=== PATIENT | female | born 1995 | race Caucasian/White ===

== ENCOUNTER → 2017-04-20 | Outpatient (CLI) | payer BC, OTHER ==
[~2017-04-20] MED LIST: ALBUAER2 INH; IRON1CAP2; MTR600X PO; PRENTAB26 PO; RANI1TAB75
[2017-04-20 18:41] LABS: URINE APPEARANCE CLEAR (CLEAR); URINE BILIRUBIN NEG (NEG); URINE COLOR YELLOW; URINE NITRITE NEG (NEG); URINE PH 6.5 (4.5-7.5); URINE SPECIFIC GRAVITY 1.021 (1.000-1.030); UROBILINOGEN NEG (NEG)
[2017-04-20 18:58] LABS: MANUAL MICROSCOPIC REQUIRED? NO; REVIEW REQ? NO
== END | disposition home or self-care (01) ==
LOC: C.LABSPEC 17:58
PROVIDERS: ATTEND Obstetrics & Gynecology
DX: Z34.81 Encounter for supervision of other normal pregnancy, first trimester (principal)

== ENCOUNTER → 2017-04-28 | Outpatient (CLI) | payer BC ==
[2017-04-28 17:45] LABS: BASO % 0.2 %; BASO ABS # 0.02 K/uL (0-0.2); COMPLETE YES; EOS % 2.7 %; HEMATOCRIT 38.2 % (37-47); IG% 0.3 %; LYMPH % 22.4 %; LYMPH ABS # 2.32 K/uL (1.2-3.4); MEAN CELL VOLUME 88.2 fL (80-100); MEAN CORPUSCULAR HEMOGLOBIN 29.1 pg (25-34); MEAN PLATELET VOLUME 11.2 fL (7.4-10.4); MONO % 8.3 %; NEUT % 66.1 %; PLATELET COUNT 302 K/uL (130-400); RED BLOOD COUNT 4.33 M/uL (4.2-5.4); WHITE BLOOD COUNT 10.34 K/uL (4.8-10.8)
[2017-05-02 05:51] LABS: CHLAMYDIA TRACH RNA*** NOT DETECTED (NOT DETECTED); GC (NEIS GONORRHOEAE)RNA** NOT DETECTED (NOT DETECTED)
== END | disposition home or self-care (01) ==
LOC: C.LAB1850 15:19
PROVIDERS: ATTEND Obstetrics & Gynecology
DX: Z34.83 Encounter for supervision of other normal pregnancy, third trimester (principal)

== ENCOUNTER → 2017-05-12 | Outpatient (CLI) | payer BC ==
[2017-05-12 11:54] LABS: URINE APPEARANCE TURBID (CLEAR); URINE BILIRUBIN NEG (NEG); URINE COLOR DK YELLOW; URINE EPITHELIAL CELL AUTO >30 /lpf (0-5); URINE NITRITE NEG (NEG); URINE SPECIFIC GRAVITY 1.034 (1.000-1.030); UROBILINOGEN NEG (NEG)
[2017-05-12 11:56] LABS: REVIEW REQ? YES
[2017-05-12 11:57] LABS: MANUAL MICROSCOPIC REQUIRED? NO
== END | disposition home or self-care (01) ==
LOC: C.LABSPEC 11:34
PROVIDERS: ATTEND Obstetrics & Gynecology
DX: R30.0 Dysuria (principal)

== ENCOUNTER → 2017-06-30 | Outpatient (CLI) | payer BC, OTHER ==
[2017-06-30 12:16] LABS: GTGD 50 Grams
== END | disposition home or self-care (01) ==
LOC: C.LAB1850 11:33
PROVIDERS: ATTEND Obstetrics & Gynecology
DX: Z34.83 Encounter for supervision of other normal pregnancy, third trimester (principal)

== ENCOUNTER → 2017-09-22 | Outpatient (CLI) | payer OTHER ==
[2017-09-22 10:03] LABS: HEMATOCRIT 32.5 % (37-47); HEMOGLOBIN 11.1 g/dL (12.0-16.0)
== END | disposition home or self-care (01) ==
LOC: C.LAB1850 09:15
PROVIDERS: ATTEND Obstetrics & Gynecology
DX: Z34.83 Encounter for supervision of other normal pregnancy, third trimester (principal)

== ENCOUNTER 2017-09-26 09:32 | Emergency (ER) | payer OTHER ==
[~2017-09-26] VITALS: Ht 157.5 cm; Wt 62.3 kg
[2017-09-26 09:35] VITALS: TEMP 36.4; Ht 157.5 cm; Wt 62.3 kg
[2017-09-26] MEDS ORDERED: SODIUM CHLORIDE 0.9% 1000ML 1,000 ML IV STA (09:50)
[2017-09-26] MEDS ORDERED: ONDANSETRON INJ 2 MG/ML 2 ML VIAL IV STA (09:50)
[2017-09-26] MEDS ORDERED: ACETAMINOPHEN 500 MG TAB PO STA (09:50)
[2017-09-26] MEDS ORDERED: VNTHFA/IN INH (10:21)
--- NOTE | 2017-09-26 10:33 | EMERGENCY ROOM VISIT NOTE ---
History Report prepared by Pallaviibrichie: Johnny Rodriguez Under the Supervision of: Dr. Estee Zuñiga M.D. First contact with patient: 09:40 Chief Complaint: VOMITING Stated Complaint: FLU, DIARRHEA,CRAMPS, CANT KEEP FLUID DOWN Nursing Triage Summary: pt awoke during night with vomiting and then diarrhea started pt can hold no fluids down and c/o cramping sensation some vaginal d/c which is normal for pt pt is 29 weeks preg History of Present Illness The patient is a 22 year old white female with a past medical history of asthma who presents to the ED with a cc of persistent vomiting beginning yesterday. Patient is 29 weeks . She has had confirmed by US. Unable to keep down fluids. Vomiting every two hours. Positive abdominal cramping, and diarrhea. Not urinating much recently. Currently using vitamins. No recent antibiotic use. No use of well or stream water. Notes that her son has been had similar symptoms. . Source of History: patient Onset: Yesterday Symptom Intensity: every two hours Quality: other (vomiting) Timing: other (persistent) Associated Symptoms: + abdominal pain, + diarrhea Review of Systems See HPI for pertinent positives and negatives. A total of ten systems were reviewed and were otherwise negative. Past Medical & Surgical Medical Problems: (1) Asthma, Unspecified Family History No pertinent family history stated. Social History Smoking Status: Never Smoker Housing Status: lives with family Current/Historical Medications Scheduled Multivit/Min/Iron/Fol Ac/Pren ( Vitamin), 1 TAB PO DAILY Scheduled PRN Albuterol Hfa (Ventolin Hfa), 2 PUFFS INH QID PRN for SOB/Wheezing Ondansetron Hcl (Zofran), 4 MG PO Q8H PRN for Nausea Miscellaneous Medications Iron Combinations (Iron Complex) Allergies Coded Allergies: Red Dye (Verified Allergy, Mild, RASH, 04/29/16) Sucralfate (Verified Allergy, Mild, RASH, 04/29/16) Physical Exam Vital Signs Date Time Temp Pulse Resp B/P (MAP) Pulse Ox O2 Delivery O2 Flow Rate FiO2 09/26/17 11:34 93 18 88/56 99 Room Air 09/26/17 11:01 92 18 95/55 93 Room Air 09/26/17 10:16 96 09/26/17 09:35 36.4 107 20 97/61 96 Room Air Physical Exam GENERAL: Awake, alert, well-appearing, NAD. Wearing face-mask. HENT: Normocephalic, atraumatic. EYES: Normal conjunctiva. Sclera non-icteric. NECK: Supple. No nuchal rigidity. FROM. RESPIRATORY: CTAB, no rhonchi, wheezing, crackles CARDIAC: RRR, no MRG ABDOMEN: NTND, BS+. Fundal height 10 cm above umbilicus. Non-surgical abdomen. MSK: No chest wall TTP, no LE edema NEURO: GCS 15, CN 2-12 intact, moves all 4s on command SKIN: No rash or jaundice noted. Medical Decision & Procedures Laboratory Results 09/26/17 10:14 Red Blood Count 3.59, Mean Corpuscular Volume 91.9, Mean Corpuscular Hemoglobin 30.9, Mean Corpuscular Hemoglobin Concent 33.6, Mean Platelet Volume 10.6, Neutrophils (%) (Auto) 87.9, Lymphocytes (%) (Auto) 5.7, Monocytes (%) (Auto) 5.1, Eosinophils (%) (Auto) 0.3, Basophils (%) (Auto) 0.1, Neutrophils # (Auto) 12.59, Lymphocytes # (Auto) 0.82, Monocytes # (Auto) 0.73, Eosinophils # (Auto) 0.05, Basophils # (Auto) 0.01 09/26/17 10:14 Test 09/26/17 10:14 09/26/17 11:00 09/26/17 11:15 White Blood Count 14.33 K/uL (4.8-10.8) Red Blood Count 3.59 M/uL (4.2-5.4) Hemoglobin 11.1 g/dL (12.0-16.0) Hematocrit 33.0 % (37-47) Mean Corpuscular Volume 91.9 fL (80-100) Mean Corpuscular Hemoglobin 30.9 pg (25-34) Mean Corpuscular Hemoglobin Concent 33.6 g/dl (32-36) Platelet Count 222 K/uL (130-400) Mean Platelet Volume 10.6 fL (7.4-10.4) Neutrophils (%) (Auto) 87.9 % Lymphocytes (%) (Auto) 5.7 % Monocytes (%) (Auto) 5.1 % Eosinophils (%) (Auto) 0.3 % Basophils (%) (Auto) 0.1 % Neutrophils # (Auto) 12.59 K/uL (1.4-6.5) Lymphocytes # (Auto) 0.82 K/uL (1.2-3.4) Monocytes # (Auto) 0.73 K/uL (0.11-0.59) Eosinophils # (Auto) 0.05 K/uL (0-0.5) Basophils # (Auto) 0.01 K/uL (0-0.2) RDW Standard Deviation 48.8 fL (36.4-46.3) RDW Coefficient of Variation 14.4 % (11.5-14.5) Immature Granulocyte % (Auto) 0.9 % Immature Granulocyte # (Auto) 0.13 K/uL (0.00-0.02) Anion Gap 9.0 mmol/L (3-11) Est Creatinine Clear Calc Drug Dose 176.6 ml/min Estimated GFR () > 150.0 Estimated GFR (Non- 143.4 BUN/Creatinine Ratio 21.3 (10-20) Calcium Level 8.6 mg/dl (8.5-10.1) Total Bilirubin 0.3 mg/dl (0.2-1) Direct Bilirubin < 0.1 mg/dl (0-0.2) Aspartate Amino Transf (AST/SGOT) 11 U/L (15-37) Alanine Aminotransferase (ALT/SGPT) 14 U/L (12-78) Alkaline Phosphatase 79 U/L (45-117) Total Protein 6.3 gm/dl (6.4-8.2) Albumin 2.6 gm/dl (3.4-5.0) Lipase 125 U/L (73-393) Human Chorionic Gonadotropin, Qual POS (NEG) Influenza Type A Antigen Neg for Influ A (NEG) Influenza Type B Antigen Neg for Influ B (NEG) Urine Color YELLOW Urine Appearance CLEAR (CLEAR) Urine pH 7.0 (4.5-7.5) Urine Specific [place] 1.015 (1.000-1.030) Urine Protein NEG (NEG) Urine Glucose (UA) NEG (NEG) Urine Ketones TRACE (NEG) Urine Occult Blood NEG (NEG) Urine Nitrite NEG (NEG) Urine Bilirubin NEG (NEG) Urine Urobilinogen NEG (NEG) Urine Leukocyte Esterase TRACE (NEG) Urine WBC (Auto) 1-5 /hpf (0-5) Urine RBC (Auto) 0-4 /hpf (0-4) Urine Hyaline Casts (Auto) 1-5 /lpf (0-5) Urine Epithelial Cells (Auto) >30 /lpf (0-5) Urine Bacteria (Auto) NEG (NEG) Laboratory results reviewed by me Medications Administered Medications (Trade) Dose Ordered Sig/Rodney Route Start Time Stop Time Status Last Admin Dose Admin Sodium Chloride 1,000 ml @ 999 mls/hr Q1H1M STAT IV 09/26/17 09:50 09/26/17 10:50 DC 09/26/17 09:50 999 MLS/HR Ondansetron HCl (Zofran Inj) 4 mg NOW STAT IV 09/26/17 09:50 09/26/17 09:52 DC 09/26/17 10:08 4 MG Acetaminophen (Tylenol Tab) 1,000 mg NOW STAT PO 09/26/17 09:50 09/26/17 09:52 DC 09/26/17 10:09 1,000 MG ED Course 0945: The patient was evaluated in room B12B. A complete history and physical exam was performed. 1025: Bedside ultrasound shows single IUP. heart rate of 158. 1155: I reevaluated the patient. Discussed results and discharge instructions: she verbalized understanding and agreement. The patient is ready for discharge. Medical Decision The patient is a 22 year old white female with a past medical history of asthma who presents to the ED with a cc of vomiting beginning yesterday. Differential diagnosis: Etiologies such as gastroenteritis, food borne illness, infections, appendicitis , diverticulitis, inflammatory bowel disease, obstruction, GI bleed, biliary pathology, as well as others were entertained. Patient was seen and evaluated the bedside. Patient did complain of some left- sided pleuritic-type chest pain. Patient does state that she flies a fair amount. Patient does use OCPs but denies smoking. Patient doesn't have any calf pain has no lower extremity swelling. No prior history of DVT or PE. Patient did not take anything for pain and patient does state the pain is nondiscriminatory on exertion. Patient does state is worse with breathing or laughing. Patient denies any recent trauma and denies any infectious symptoms. Patient did have an EKG, troponin, blood work, and d-dimer performed. Patient was also given medications for symptom control. Patient's blood work was completed. Patient had white blood cell count of 14, 000. Patient stated that her pain improved about a 1 or 2. Patient was able tolerate crackers and by mouth fluids at the bedside. I believe this is likely reactive from gastroenteritis. Patient does not have a surgical abdomen. I did perform a bedside ultrasound which did show heart tones 158. Patient denied any urinary symptoms and the UA appears negative from an infection standpoint. Patient's BUN/creatinine ratio likely indicative of dehydration. She did receive IV fluids as well as medications and was feeling improved. Patient was told to call her BIOINFORMATICS ANALYST for an earlier follow-up if she does have an appointment in 2 weeks. Patient was told to advance her diet as tolerated, clear liquids, bland diet. Patient was told return if she had any worsening symptoms or was unable to tolerate by mouth. Patient was given strict follow-up , discharge, and return precautions. All questions were answered. Patient was deemed suitable for outpatient follow-up at this time. Patient agreed with the plan of care and was safely discharged home. The chart was completed utilizing [employer] Speech voice recognition software. Grammatical errors, random word insertions, pronoun errors, and incomplete sentences are an occasional consequence of this system due to software limitations, ambient noise, and hardware issues. Any formal questions or concerns about the content, text, or information contained within the body of this dictation should be directly addressed to the physician for clarification. Medication Reconcilliation Current Medication List: was personally reviewed by me Blood Pressure Screening Patient's blood pressure: Low blood pressure Blood pressure disposition: Did not require urgent referral Impression Primary Impression: Viral gastroenteritis Scribe Attestation The scribe's documentation has been prepared under my direction and personally reviewed by me in its entirety. I confirm that the note above accurately reflects all work, treatment, procedures, and medical decision making performed by me. Departure Information Dispostion Home / Self-Care Prescriptions Ondansetron Hcl (ZOFRAN) 4 Mg Tab 4 MG PO Q8H Y for Nausea, #6 TAB Prov: Neftaly Grajeda M.D. 09/26/17 Referrals Chrissie Torres C.R.N.P. (PCP) Patient Instructions ED Nausea Vomiting, My [facility] Additional Instructions Please return to the emergency department if you have worsening or recurrent symptoms not amenable to at-home treatment. Please call for a follow-up appointment with her primary care physician. Please take your medications as prescribed. If you have other concerns and/or complaints please feel free to also call your primary care physician's office or return the ED for further evaluation, management, and treatment. For nausea consider taking Benadryl and or meclizine which may be obtained over- the-counter at her local pharmacy. If he still have complaints of nausea and/ or vomiting he may try the Zofran. Please follow-up with your BIOINFORMATICS ANALYST specialist. You may take tylenol 1000 mg every 6 hours as needed for pain. Take your medications as prescribed. You have been examined and treated today on an emergency basis only. This is not a substitute for, or an effort to provide, complete comprehensive medical care. It is impossible to recognize and treat all injuries or illnesses in a single emergency department visit. It is therefore important that you follow up closely with [facility], your PCP, and/or your specialist(s). Call as soon as possible for an appointment. Thank you for your time and consideration. I look forward to speaking with you again soon. Please don't hesitate to call us if you have any questions.
[2017-09-26 10:38] LABS: BASO % 0.1 %; BASO ABS # 0.01 K/uL (0-0.2); EOS % 0.3 %; EOS ABS # 0.05 K/uL (0-0.5); HEMOGLOBIN 11.1 g/dL (12.0-16.0); IG# 0.13 K/uL (0.00-0.02); LYMPH % 5.7 %; LYMPH ABS # 0.82 K/uL (1.2-3.4); MEAN CELL VOLUME 91.9 fL (80-100); MEAN CORPUSCULAR HEMOGLOBIN 30.9 pg (25-34); MEAN CORPUSCULAR HGB CONC 33.6 g/dl (32-36); MEAN PLATELET VOLUME 10.6 fL (7.4-10.4); MONO % 5.1 %; MONO ABS # 0.73 K/uL (0.11-0.59); NEUT % 87.9 %; NEUT ABS # 12.59 K/uL (1.4-6.5); PLATELET COUNT 222 K/uL (130-400); RED CELL DISTRIBUTION WIDTH CV 14.4 % (11.5-14.5); RED CELL DISTRIBUTION WIDTH SD 48.8 fL (36.4-46.3); WHITE BLOOD COUNT 14.33 K/uL (4.8-10.8)
[2017-09-26 10:56] LABS: ALBUMIN 2.6 gm/dl (3.4-5.0); ALT/SGPT 14 U/L (12-78); AST/SGOT 11 U/L (15-37); BLOOD UREA NITROGEN 9 mg/dl (7-18); CALCIUM 8.6 mg/dl (8.5-10.1); CARBON DIOXIDE 22 mmol/L (21-32); CREATININE 0.43 mg/dl (0.60-1.20); GLUCOSE 84 mg/dl (70-99); LIPASE 125 U/L (73-393); POTASSIUM 3.4 mmol/L (3.5-5.1); SODIUM 135 mmol/L (136-145)
[2017-09-26 10:58] LABS: ALKALINE PHOSPHATASE 79 U/L (45-117); TOTAL PROTEIN 6.3 gm/dl (6.4-8.2)
[2017-09-26 11:38] LABS: INFLUENZA B ANTIGEN Neg for Influ B (NEG)
[2017-09-26] MEDS ORDERED: ONDA4TAB46 PO (12:02)
[2017-09-26 12:16] VITALS: BP 90/50; PULSE 95; O2SAT 96
== END 2017-09-26 12:16 | disposition home or self-care (01) ==
LOC: C.EDB 09:34
DX: A08.4 Viral intestinal infection, unspecified (principal); O26.893 Other specified pregnancy related conditions, third trimester; Z3A.29 29 weeks gestation of pregnancy; J45.909 Unspecified asthma, uncomplicated; O99.513 Diseases of the respiratory system complicating pregnancy, third trimester

== ENCOUNTER 2017-10-12 20:28 | Outpatient (CLI) | payer OTHER ==
[~2017-10-12] VITALS: Ht 157.5 cm; Wt 62.7 kg
[~2017-10-12 20:28] MED LIST changes: -ALBUAER2 INH; -MTR600X PO; +ONDA4TAB46 PO; -RANI1TAB75; +VNTHFA/IN INH
[2017-10-12 21:40] VITALS: Ht 157.5 cm; Wt 62.7 kg
== END 2017-10-12 21:30 | disposition home or self-care (01) ==
LOC: C.OPB 20:28 → C.LD 20:30 → C.OPB 21:30
PROVIDERS: ATTEND Obstetrics & Gynecology
DX: O26.899 Other specified pregnancy related conditions, unspecified trimester (principal); Z3A.00 Weeks of gestation of pregnancy not specified

== ENCOUNTER → 2017-11-21 | Outpatient (CLI) | payer OTHER ==
[~2017-11-21] MED LIST changes: -ONDA4TAB46 PO
== END | disposition home or self-care (01) ==
LOC: C.LABSPEC 16:10
PROVIDERS: ATTEND Obstetrics & Gynecology
DX: Z34.83 Encounter for supervision of other normal pregnancy, third trimester (principal)

== ENCOUNTER 2017-11-30 22:03 | Observation (INO) | payer OTHER ==
[2017-11-30] MEDS ORDERED: LACTATED RINGER'S 1000ML 1,000 ML IV PRN (22:39)
[2017-11-30] MEDS ORDERED: LACTATED RINGER'S 1000ML 1,000 ML IV SCH (22:39)
[2017-11-30 23:07] LABS: HEMATOCRIT 32.9 % (37-47); HEMOGLOBIN 10.9 g/dL (12.0-16.0); MEAN CELL VOLUME 90.6 fL (80-100); MEAN CORPUSCULAR HGB CONC 33.1 g/dl (32-36); MEAN PLATELET VOLUME 10.7 fL (7.4-10.4); PLATELET COUNT 196 K/uL (130-400); RED CELL DISTRIBUTION WIDTH CV 15.1 % (11.5-14.5); RED CELL DISTRIBUTION WIDTH SD 49.7 fL (36.4-46.3); WHITE BLOOD COUNT 12.66 K/uL (4.8-10.8)
[2017-12-01] MEDS ORDERED: IV FLUIDS COMPLETED PRN (08:15)
== END 2017-12-01 07:35 | disposition home or self-care (01) ==
LOC: C.LD 22:03 → C.OPB 22:03 → C.LD 22:40 → C.OPB 22:40 → INTOOBSV 22:40
PROVIDERS: ADMIT Obstetrics & Gynecology; ATTEND Obstetrics & Gynecology
DX: O62.9 Abnormality of forces of labor, unspecified (principal); Z3A.00 Weeks of gestation of pregnancy not specified

== ENCOUNTER 2017-12-08 07:39 | Inpatient (IN) | payer OTHER ==
[~2017-12-08] VITALS: Ht 157.5 cm; Wt 67.0 kg
[2017-12-08] MEDS ORDERED: LACTATED RINGER'S 1000ML 1,000 ML IV PRN (07:50)
[2017-12-08] MEDS ORDERED: LACTATED RINGER'S 1000ML 500 ML IV PRN ×2 (07:52→09:52)
[2017-12-08] MEDS ORDERED: OXYTOCIN 30 UNITS/500ML NSS IV PRN ×2 (08:00→11:45)
[2017-12-08 08:24] LABS: HEMATOCRIT 33.7 % (37-47); HEMOGLOBIN 10.6 g/dL (12.0-16.0); MEAN CELL VOLUME 90.8 fL (80-100); MEAN CORPUSCULAR HEMOGLOBIN 28.6 pg (25-34); MEAN CORPUSCULAR HGB CONC 31.5 g/dl (32-36); MEAN PLATELET VOLUME 10.9 fL (7.4-10.4); PLATELET COUNT 182 K/uL (130-400); RED CELL DISTRIBUTION WIDTH CV 15.2 % (11.5-14.5); RED CELL DISTRIBUTION WIDTH SD 49.6 fL (36.4-46.3); WHITE BLOOD COUNT 13.01 K/uL (4.8-10.8)
[2017-12-08] MEDS ORDERED: BUPIVACAINE 0.25% 30 ML VIAL ONE (08:49)
[2017-12-08] MEDS ORDERED: EpHEDrine SULFATE INJ 50 MG/ML AMP ONE (08:50)
[2017-12-08] MEDS ORDERED: FENTANYL CITRATE INJ 50 MCG/1 ML 2 ML VIAL ONE (08:50)
[2017-12-08] MEDS ORDERED: FENTANYL 2MCG/ML ROPIV 1.25MG/ML 100ML BAG EPI ONE (08:52)
[2017-12-08] MEDS ORDERED: LACTATED RINGER'S 1000ML 1,000 ML IV SCH ×2 (09:00→11:43)
[2017-12-08] MEDS ORDERED: RANITIDINE HCL 150 MG TAB PO ONE (09:00)
[2017-12-08 09:04] VITALS: Ht 157.5 cm; Wt 67.0 kg
[2017-12-08] MEDS ORDERED: NALOXONE HCL INJ 1 MG in SODIUM CHLORIDE 0.9% 1000ML 1,000 ML IV PRN (09:52)
[2017-12-08] MEDS ORDERED: DiphenhydrAMINE HCL 50 MG/ML VIAL IV PRN (10:00)
[2017-12-08] MEDS ORDERED: NALBUPHINE HCL INJ 10 MG/ML AMP IV PRN (10:00)
[2017-12-08] MEDS ORDERED: EpHEDrine SULFATE INJ 50 MG/ML AMP IV PRN (10:00)
[2017-12-08] MEDS ORDERED: FENTANYL 2MCG/ML ROPIV 1.25MG/ML 100ML BAG EPI PRN (10:00)
[2017-12-08] MEDS ORDERED: ONDANSETRON INJ 2 MG/ML 2 ML VIAL IV PRN (10:00)
[2017-12-08] MEDS ORDERED: NALOXONE HCL INJ 0.4 MG/1 ML VIAL/CARP IV PRN (10:00)
[2017-12-08] MEDS ORDERED: DIPHTHERIA/TETANUS/PERTUSSIS 0.5 ML SYR/VIAL IM. ONE (11:45)
[2017-12-08] MEDS ORDERED: SUPERCREAM 0.870 % 15GM JAR EXT PRN (11:45)
[2017-12-08] MEDS ORDERED: HYDROCORTISONE ACETATE 25 MG SUPP PR PRN (11:45)
[2017-12-08] MEDS ORDERED: ACETAMINOPHEN 325 MG TAB PO PRN (11:45)
[2017-12-08] MEDS ORDERED: OXYCODONE/ACETAMINOPHEN 5-325 TAB PO PRN (11:45)
[2017-12-08] MEDS ORDERED: BENZOCAINE 20% AER SPR 82.5 GM CAN EXT PRN (11:45)
[2017-12-08] MEDS ORDERED: LANOLIN OINT EXT PRN (11:45)
--- NOTE | 2017-12-08 11:45 | Vaginal Delivery Summary ---
Vaginal Delivery Summary Patient pushed well to deliver the head of her female infant in occiput- anterior position, followed by both shoulders and remainder of baby without difficulty. The cord was doubly clamped and cut by FOB, then placed on maternal abdomen. The perineum had a second-degree laceration which was repaired in the usual manner with vicryl. The placenta then delivered spontaneously and had a 3vc and was intact. The fundus was firm and lochia was minimal after delivery.
--- NOTE | 2017-12-08 13:38 | Anesthesia Procedure Note ---
Anesthesia Epidural Removal Nt Date & Time Dec 08, 2017 at 13:38 Vital Signs Pain Intensity: 0.0 Notes Mental Status: alert / awake / arousable, participated in evaluation Nausea / Vomiting: adequately controlled Pain: adequately controlled Airway Patency, RR, SpO2: stable & adequate BP & HR: stable & adequate Hydration State: stable & adequate Neuraxial Anesthesia: was administered, sensory block is resolving Anesthetic Complications: no major complications apparent, pt satisfied with anesthetic care Epidural: removed without complications, with tip intact
[2017-12-08 15:10] VITALS: BP 109/67; PULSE 77; TEMP 36.7; O2SAT 98
[2017-12-08] MEDS: IBUPROFEN 600 MG TAB PO PRN ×2 (19:47→23:53)
[2017-12-08] MEDS: DOCUSATE SODIUM 100 MG CAP PO SCH (19:47)
[2017-12-08 19:49] VITALS: BP 100/62; PULSE 70; TEMP 36.6; O2SAT 96
[2017-12-08 23:50] VITALS: BP 101/62; PULSE 58; TEMP 36.4; O2SAT 96
[2017-12-09 03:35] VITALS: BP 95/58; PULSE 69; TEMP 36.6; O2SAT 96
--- NOTE | 2017-12-09 06:35 | Progress Note ---
Subjective Dec 09, 2017. Subjective conversation w/ patient, physical exam Ambulation: ambulating normally Voiding: no voiding problems Passing Gas: Yes Diet Tolerance: Regular Diet Lochia: Moderate Feeding Type: Breast Feeding Pain: cramping while Comment: seen and assessed at bedside; no acute events overnight Review of Systems Constitutional: No fever, No chills Respiratory: No cough, No shortness of breath Cardiac: No chest pain, No edema Abdomen: No nausea, No vomiting no headaches or calf pain Objective Vital Signs Date Time Temp Pulse Resp B/P (MAP) Pulse Ox O2 Delivery O2 Flow Rate FiO2 12/09/17 03:35 36.6 69 20 95/58 (70) 96 Room Air 12/08/17 23:50 36.4 58 20 101/62 (75) 96 Room Air 12/08/17 23:50 96 Room Air 12/08/17 19:49 36.6 70 20 100/62 (75) 96 Room Air 12/08/17 15:10 36.7 77 18 109/67 (81) 98 Room Air 12/08/17 15:10 98 Room Air Physical Exam General Appearance: WELL-APPEARING, NO APPARENT DISTRESS Respiratory/Chest: lungs clear, normal breath sounds Cardiovascular: regular rate, rhythm, no edema, no murmur Abdomen: non tender, soft Fundus: Firm, Non-Tender, Relation to Umbilicus (2-3 below) Extremities: normal range of motion, non-tender, normal inspection, no pedal edema, no calf tenderness Laboratory Results Last 24 Hours Test 12/08/17 08:02 12/09/17 04:44 White Blood Count 13.01 K/uL Red Blood Count 3.71 M/uL Hemoglobin 10.6 g/dL Hematocrit 33.7 % Mean Corpuscular Volume 90.8 fL Mean Corpuscular Hemoglobin 28.6 pg Mean Corpuscular Hemoglobin Concent 31.5 g/dl RDW Standard Deviation 49.6 fL RDW Coefficient of Variation 15.2 % Platelet Count 182 K/uL Mean Platelet Volume 10.9 fL Medications Current Inpatient Medications Medications (Trade) Dose Ordered Sig/Rodney Route Start Time Stop Time Status Last Admin Dose Admin Lactated Ringer's 1,000 ml @ 125 mls/hr Q8H IV 12/08/17 11:43 01/07/18 11:42 Oxytocin (Pitocin IV) 30 units UD PRN IV 12/08/17 11:45 01/07/18 11:44 Benzocaine (Dermoplast Aero Spr) 1 appln PRN PRN EXT 12/08/17 11:45 01/07/18 11:44 Cocaine HCl (Supercream 0.870% Cr) BID PRN EXT 12/08/17 11:45 12/22/17 11:44 Hydrocortisone Acetate (Anusol Hc Supp) 25 mg BID PRN GA 12/08/17 11:45 01/07/18 11:44 Lanolin (Lanolin Oint) PRN PRN EXT 12/08/17 11:45 01/07/18 11:44 Prenat Multivit/ Property Worker/Iron/Folic Ac ( Vitamin Tab) 1 tab DAILY PO 12/09/17 08:00 01/08/18 07:59 Ibuprofen (Motrin Tab) 600 mg Q4H PRN PO 12/08/17 11:45 01/07/18 11:44 12/08/17 23:53 600 MG Acetaminophen (Tylenol Tab) 650 mg Q6H PRN PO 12/08/17 11:45 01/07/18 11:44 Oxycodone/ Acetaminophen (Percocet 5-325mg Tab) 1 tab Q4H PRN PO 12/08/17 11:45 12/22/17 11:44 Docusate Sodium (coLACE CAP) 100 mg BID PO 12/08/17 20:00 01/07/18 19:59 12/08/17 19:47 100 MG Assessment and Plan Problem List Medical Problems: (1) Viral gastroenteritis Status: Acute Post- Day#: 1 Continue Routine Care: 22 yo F PPD 1 s/p Pt doing well clinically Continue routine care: ambulation, breast feeding, pain control prn Home today; discharge instructions reviewed Will need rhogam prior to DC Resident Tracking Resident Involvement: Resident Care Provided Care Provided: OB Delivery
--- NOTE | 2017-12-09 06:36 | Discharge Instructions ---
Discharge Instructions Date of Service Dec 09, 2017. Admission Reason for Admission: Hx 4TH Degree Perineal Laceration W/Delivery-Induc Discharge Discharge Diagnosis / Problem: s/p Discharge Goals Goal(s): Routine recovery after delivery Medications Continue Dispensed Medications: supercream, dermaplast, tucks, lansinoh Activity Recommendations Activity Limitations: per Instructions/Follow-up section . Instructions / Follow-Up Instructions / Follow-Up ACTIVITY RECOMMENDATIONS: * Gradual return to full activity over the next 2-3 weeks. * No lifting - nothing heavier than baby over the next 2-3 weeks. * Do not engage in vigorous exercise, sexual activity or sports until cleared by your physician. * Do not drive or operate any motorized equipment until cleared by your physician. * You may shower/bathe daily. MEDICATIONS: For discomfort or pain, you may use Acetaminophen (Tylenol), Ibuprofen (Advil), or Naproxen (Aleve) following the package directions. For constipation you may use Colace following the package directions. BREAST CARE: If you are not breast feeding: * Wear a supportive bra 24 hours a day for one to two weeks. * Avoid stimulating your breasts and nipples as much as possible during the first few weeks after delivery. * When taking a shower, have the warm water hit your back, not breasts. * When your breasts feel full, apply ice packs. Usually three to four times a day helps ease the discomfort. * Take a mild pain medication (Tylenol / Motrin) when you are uncomfortable. If breast feeding: * Use breast milk to lubricate nipples. Lansinoh cream may be used for sore nipples. You do not need to remove cream prior to breast feeding. If using a different brand of cream, check the label for directions regarding removal of cream prior to nursing. * Wear a supportive bra. * If having problems with breasts or breast feeding, call a travel sales consultant or your health care provider. EPISIOTOMY CARE: After delivery, if you have an episiotomy (stitches), the following steps will ease discomfort and aid healing. * For the first 24 hours after delivery, place ice packs next to your episiotomy to help reduce swelling. * After the first 24 hour-period, sitz baths, either portable or in the tub, are suggested. A shower with a shower arm sprayed over the episiotomy may be comforting. * Raisa care should be done after each voiding and bowel movement. Squirt warm water from a plastic bottle over the perineum (region of the body between the anus and urinary opening) and pat dry. * Use Dermoplast to ease discomfort. Shake container. [place] directly over the episiotomy. Place a Tucks on a clean sanitary pad next to your episiotomy. SPECIAL CARE INSTRUCTIONS: When you are discharged from the hospital, it is important for you to follow the instructions listed below: * During the first week at home, you should be able to care for yourself and your baby. In addition, the usual light household activities are encouraged. * Limit your activities to the way you feel. Do not try to clean the house or move furniture. Be sensible. * If you actively engage in sports and have done so up until the time of your delivery, you may resume these activities as soon as you feel able. This may take up to one month or even longer. Use good judgment. * Continue to take your vitamins for at least six weeks after the of your baby. * Your diet need not be limited unless you were on a special diet before your delivery. Breast-feeding mothers need around 2500 calories per day and at least 64-80 ounces of fluid per day (8 to 10 glasses). * You should eat foods from the four major food groups. Crash diets or fad diets are to be avoided. Eating lean meats, fresh fruits and vegetables, low-fat dairy products, high fiber foods and a regular exercise program, will help you get back to your pre- weight without putting your health at risk. * Constipation is sometimes a problem after delivery. Take a mild laxative as needed. If breast feeding, Milk of Magnesia is acceptable to use. You may use a suppository or Fleets enema if no episiotomy. * A daily shower or tub bath is suggested. Be sure to thoroughly and gently dry the perineum. * A bloody vaginal discharge will usually continue until around four weeks post . A small amount of bleeding may continue for as long as six weeks. Vaginal discharge changes from the bright red bleeding after delivery to pink then brownish and finally yellowish-pink before becoming white and disappearing. * Bleeding may increase with activity. Your first period may come in 4-8 weeks. If you are breast feeding, your period may be delayed even longer. * [place] (sex) can begin whenever both you and your partner feel comfortable and do not have any form of genital infection. It is recommended that you wait at least six weeks for internal and external healing to occur. If you have questions, please talk to your health care practitioner. A condom should be used to prevent infection and . * Foreplay, gentle intercourse and lubrication is very important the first several times to prevent pain. A water-based lubricant such as K-Y jelly or Astroglide may be used. * If you have RH negative blood and your baby is RH positive, you will receive RHOGAM by injection prior to discharge. The nurse will give you a card to keep with you that has the date and place that you received RHOGAM after delivery. * During your care, you had a Rubella screen done to check for the presence of rubella antibodies in your blood. If your test was negative, you will receive a Rubella vaccine prior to discharge. This vaccine may cause a fever, soreness at the injection site and flu-like symptoms. If these symptoms persist, notify your health care practitioner. is not advised for one month after a Rubella vaccine. * Verbalizes understanding of car seat law as reviewed with patient nursing. * Car Seat hand-out given and reviewed with patient by nursing. * Shaken baby information reviewed with patient by nursing. Call you doctor if: * Heavy bleeding (saturating several pads an hour) or passing clots the size of your fist. * A fever >101 degrees F (38.3 degrees C) on two occasions four hours apart and /or chills. * Unusual pain in the pelvic or vaginal areas. * "Baby Blues" lasting longer than two weeks. If you have any questions or concerns, call your health care practitioner at . FOLLOW UP VISIT: * Please call the office at to schedule a 6 week examination. It is important you keep this appointment. It is important for you to make arrangements for either yearly or twice yearly check-ups thereafter. Current Hospital Diet Patient's current hospital diet: Regular OB Diet Discharge Diet Recommended Diet: Regular OB Diet Pending Studies Studies pending at discharge: no Medical Emergencies . Who to Call and When: Medical Emergencies: If at any time you feel your situation is an emergency, please call 911 immediately. . Non-Emergent Contact Non-Emergency issues call your: [employer] . . "Provider Documentation" section prepared by Marci Salamanca. .
[2017-12-09 08:00] VITALS: BP 106/69; PULSE 85; TEMP 36.7; O2SAT 97
[2017-12-09] MEDS ORDERED: PRENATAL VITAMIN TAB PO SCH (08:00)
[2017-12-09 08:06] LABS: HEMATOCRIT 36.1 % (37-47); HEMOGLOBIN 11.9 g/dL (12.0-16.0)
[2017-12-09] MEDS: DOCUSATE SODIUM 100 MG CAP PO SCH (08:34)
[2017-12-09] MEDS: IBUPROFEN 600 MG TAB PO PRN (08:35)
[2017-12-09 14:58] VITALS: BP_DIAS 69; PULSE 85; TEMP 36.7
== END 2017-12-09 15:00 | disposition home or self-care (01) | DRG 775 ==
LOC: C.LD 07:39 → C.OBG 14:33 → EDSTATUS 12-09 09:00
PROVIDERS: ADMIT Obstetrics & Gynecology; ATTEND Obstetrics & Gynecology
PROC: 0KQM0ZZ Repair Perineum Muscle, Open Approach (ICD-10-PCS; principal; 2017-12-08)
PROC: 10E0XZZ Delivery of Products of Conception, External Approach (ICD-10-PCS; principal; 2017-12-08)
DX: O70.1 Second degree perineal laceration during delivery (principal); Z37.0 Single live birth; Z3A.39 39 weeks gestation of pregnancy

== ENCOUNTER → 2018-01-31 | Outpatient (CLI) | payer OTHER | END | disposition home or self-care (01) | LOC: C.PATHSPEC 11:07 | PROVIDERS: ATTEND Plastic Surgery | DX: D22.5 Melanocytic nevi of trunk (principal) ==

== ENCOUNTER → 2018-04-15 | Outpatient (CLI) | payer OTHER ==
[~2018-04-15] MED LIST changes: +ESCI1TAB6 PO; -IRON1CAP2
== END | disposition home or self-care (01) ==
LOC: C.LABSPEC 10:56
PROVIDERS: ATTEND Nurse Practitioner Family
DX: R39.9 Unspecified symptoms and signs involving the genitourinary system (principal)

== ENCOUNTER 2024-02-01 07:41 | Inpatient (IN) ==
[2024-02-01] MEDS ORDERED: LIDOCAINE 1% LOCAL 20 ML VIAL INFIL PRN (08:34)
[2024-02-01] MEDS ORDERED: OXYTOCIN 30 UNITS/NSS 30 UNITS/500 ML BAG IV PRN ×2 (08:34→17:58)
[2024-02-01 09:16] LABS: Hematocrit (blood only) 29.1 % (37.0-47.0); Hemoglobin 9.7 g/dl (12.0-16.0); Mean Corpuscular Hemoglobin 30.2 pg (25.0-34.0); Mean Corpuscular Hgb Conc 33.3 g/dL (32.0-36.0); Mean Corpuscular Volume 90.7 fL (80.0-100.0); Mean Platelet Volume 11.3 fL (9.4-12.4); Platelet Count 233 K/uL (130-400); RDW Coefficient of Variation 14.6 % (11.5-14.5); RDW Standard Deviation 48.5 fL (36.4-46.3); Red Blood Count 3.21 M/uL (4.20-5.40)
[2024-02-01] MEDS: LACTATED RINGER'S 1,000 ML IV PRN (09:27)
[2024-02-01] MEDS: OXYTOCIN 30 UNITS/NSS 30 UNITS/500 ML BAG IV PRN (09:28)
--- NOTE | 2024-02-01 10:16 | History & Physical Report ---
Date of Service February 01, 2024 Assessment & Plan (1) Gestational diabetes mellitus (GDM) affecting , antepartum: Plan: IUP at 39 1/7 weeks for IOL because of prior 4th degree laceration repair cervix too posterior to AROM at this time, will start pitocin per induction protocol then AROM when feasible to do so epidural analgesia if patient requests anticipate vaginal Admission and Anticipated Discharge Date Admission Date: February 01, 2024 History of Present Illness Primary Care Provider: Blaze Fernandez DO Patient is a female EDC [birth year] who presents at 39 1/7 weeks for IOL because of prior 4th degree laceration with her first delivery. subsequent deliveries have been uneventful. diagosed with diet controlled GDM this . all testing has been reassuring. GBS - negative. Allergies Allergy/AdvReac Type Severity Reaction Status Date / Time cat dander Allergy Intermediate HIVES Verified 01/31/24 10:42 dog dander Allergy Intermediate HIVES Verified 01/31/24 10:42 grass pollen-perennial rye, Allergy Intermediate HIVES Verified 01/31/24 10:42 standar mold Allergy Intermediate dificulty Verified 01/31/24 10:42 breathing house dust mite Allergy Mild red eyes, Verified 01/31/24 10:42 sneezing ragweed pollen Allergy Mild sneezing, Verified 01/31/24 10:42 itchy eyes red dye Allergy Mild RASH Verified 01/31/24 10:42 sucralfate Allergy Mild RASH Verified 01/31/24 10:42 tree and shrub pollen Allergy Mild Sneezing Verified 01/31/24 10:42 Home Medications Medication Instructions Recorded Confirmed Type epinephrine 0.3 mg/0.3 mL 0.3 mg (0.3 mL) IM Q10M PRN 04/24/20 01/31/24 Rx injection, auto-injector anaphylaxis #2 ea albuterol sulfate 90 mcg/actuation 1 - 2 puff inhalation Q4 PRN 04/28/23 01/31/24 Rx aerosol inhaler Shortness Of Breath #8.5 grams 21-iron fu-folic acid 1 tab PO DAILY 06/29/23 01/31/24 History [ Complete] omeprazole 20 mg capsule,delayed 20 mg PO DAILY #30 caps 11/18/23 01/31/24 Rx release acetone (urine) test (Ketone Urine #50 ea 12/12/23 01/31/24 Rx Test strips) blood sugar diagnostic (OneTouch #150 ea 12/12/23 01/31/24 Rx Verio test strips) blood-glucose meter (OneTouch #1 ea 12/12/23 01/31/24 Rx Verio Reflect Meter) lancets 33 gauge (OneTouch Delica #150 ea 12/12/23 01/31/24 Rx Plus Lancet) ferrous sulfate 134 mg (27 mg 134 mg PO DAILY 01/22/24 01/31/24 History iron) tablet amoxicillin 500 mg tablet 500 mg PO Q8H #21 tabs 01/24/24 01/31/24 Rx Patient History Medical History Asthma Chlamydia History of chicken pox Hypotension Nausea and vomiting after administration of anesthetic agent History of cold urticaria Surgical History S/P wisdom tooth extraction Family History Grandfather (Maternal) Family history of diabetes mellitus Other No family history of adverse response to anesthesia No pertinent family history Denies family history of Ovarian cancer Prostate cancer Myocardial infarction Breast cancer Colorectal cancer Uterine cancer Social History Smoking Status: Never smoker Second Hand Exposure: No; Do You Dip or Chew Tobacco: No; Tobacco Cessation Education Requested by Patient: No Hx Alcohol Use: No Hx Substance Use: No Preferred Language: Arabic Communication Ability: Effective Visual Impairment: No Limitations Hearing Ability: Normal Bottle Blower Required: No Beliefs That Will Affect Care: None marital status: marital status details: vonda Ronny Byron (28) [phone] Current Living Situation: Spouse and Family Current Living Situation Comment: Pt lives with and 3 children current occupational status: employed current occupation: Social work [employer] How many Children do You have: 3 Other Information That Helps Us Care for You: No Feels Safe at Home: Yes Safety Concerns: Feels Safe At This Time Childhood Exposure to Second-Hand Smoke: No Diet: regular caffeine: Yes during the past year weight has: remained stable Dental Care, Regularly: Yes Physical Activity Frequency: Daily Seatbelt Use: always Sunscreen Use: Yes Assistive Devices: None Review of Systems All systems reviewed & are unremarkable except as noted in HPI & below Physical Exam Constitutional: WD/WN, vitals as above Psychiatric: A+Ox3, euthymic affect Genitourinary: OB Exam Abdomen: + vertex and + estimated weight (7-8 pounds); no regular contractions Manual OB Exam: + cervical dilation 4 cm (posterior), + cervical effacement 80% and + station 0 OB Exam Monitor Tracing: + external FHT monitor used, + external uterine monitor used, + category I and + normal FHT variability Results & Data Vital Signs (Past 12 Hours) Vital Signs Temp Pulse Resp BP 02/01/24 09:24 80 99/58 L 02/01/24 08:04 97.8 F 90 16 98/63 L 02/01/24 08:00 90 98/63 L Code Status & VTE Plan VTE Prophylaxis Plan VTE Prophylaxis will be ordered: No Coding Level of Care Code None Diagnoses Gestational diabetes mellitus (GDM) affecting , antepartum O24.419
[2024-02-01] MEDS ORDERED: ALBUTEROL HFA 8 GM INHALER INH PRN (10:17)
[2024-02-01] MEDS: BUTORPHANOL TARTRATE 1 MG/ML VIAL IM PRN (13:08)
[2024-02-01] MEDS ORDERED: ePHEDrine sulfate 50 MG/ML AMP ONE (14:45)
[2024-02-01] MEDS ORDERED: fentaNYL citrate PF 100 MCG/2 ML VIAL ONE (14:45)
[2024-02-01] MEDS ORDERED: SODIUM CHLORIDE 0.9% PF INJ 10 ML VIAL ONE (14:45)
[2024-02-01] MEDS ORDERED: LIDOCAINE 2%/EPINEPHRINE 1:200,000 20 ML PF ONE (14:46)
[2024-02-01] MEDS ORDERED: BUPIVACAINE 0.25% PF 30 ML VIAL ONE (14:46)
[2024-02-01] MEDS ORDERED: fentANYL 2 MCG/ML BUPIVacaine 0.125%-NSS 100ML BAG ONE (14:46)
[2024-02-01] MEDS ORDERED: LIDOCAINE 2% MPF LOCAL 5 ML VIAL EPI PRN (14:54)
[2024-02-01] MEDS ORDERED: BUPIVACAINE 0.25% PF 30 ML VIAL EPI PRN (14:54)
[2024-02-01] MEDS ORDERED: SODIUM CHLORIDE 0.9% PF INJ 10 ML VIAL EPI STA (14:54)
[2024-02-01] MEDS ORDERED: diphenhydrAMINE 50 MG/ML VIAL IV PRN (14:54)
[2024-02-01] MEDS ORDERED: NALOXONE HCL 1 MG in SODIUM CHLORIDE 0.9% 1,000 ML IV PRN (14:54)
[2024-02-01] MEDS ORDERED: NALBUPHINE HCL 5 MG in SYRINGE 0 ML IV PRN (14:54)
[2024-02-01] MEDS ORDERED: ONDANSETRON INJ 2 MG/ML 2 ML VIAL IV PRN (14:54)
[2024-02-01] MEDS ORDERED: BUPIVACAINE 0.25% PF 30 ML VIAL EPI STA (14:54)
[2024-02-01] MEDS ORDERED: ROPIVACAINE 0.5% PF 5 MG/ML 20 ML VIAL EPI PRN (14:54)
[2024-02-01] MEDS ORDERED: fentaNYL citrate PF 100 MCG/2 ML VIAL EPI PRN (14:54)
[2024-02-01] MEDS ORDERED: SODIUM CHLORIDE 0.9% PF INJ 10 ML VIAL EPI PRN (14:54)
[2024-02-01] MEDS ORDERED: ePHEDrine sulfate 50 MG/ML AMP IV PRN (14:54)
[2024-02-01] MEDS ORDERED: NALOXONE HCL 0.4 MG/1 ML VIAL/CARP IV PRN (14:54)
--- NOTE | 2024-02-01 14:54 | Anesthesiology Consultation ---
Date of Service February 01, 2024 Assessment & Plan ASA ASA3 Proposed Anesthesia Anesthesia Type: Labor Epidural Risk / Benefits Reviewed With: PT / POA / Parent / Guardian, Accepts Plan and Informed Consent Obtained History Height/Weight Height: 5 ft 2 in Weight: 69.4 kg Allergies Allergy/AdvReac Type Severity Reaction Status Date / Time cat dander Allergy Intermediate HIVES Verified 01/31/24 10:42 dog dander Allergy Intermediate HIVES Verified 01/31/24 10:42 grass pollen-perennial rye, Allergy Intermediate HIVES Verified 01/31/24 10:42 standar mold Allergy Intermediate dificulty Verified 01/31/24 10:42 breathing house dust mite Allergy Mild red eyes, Verified 01/31/24 10:42 sneezing ragweed pollen Allergy Mild sneezing, Verified 01/31/24 10:42 itchy eyes red dye Allergy Mild RASH Verified 01/31/24 10:42 sucralfate Allergy Mild RASH Verified 01/31/24 10:42 tree and shrub pollen Allergy Mild Sneezing Verified 01/31/24 10:42 Medications Home Medications Medication Instructions Recorded Confirmed Last Taken epinephrine 0.3 mg/0.3 mL 0.3 mg (0.3 mL) IM Q10M PRN 04/24/20 01/31/24 Unknown injection, auto-injector anaphylaxis #2 ea albuterol sulfate 90 mcg/actuation 1 - 2 puff inhalation Q4 PRN 04/28/23 01/31/24 01/18/24 21:00 aerosol inhaler Shortness Of Breath #8.5 grams 21-iron fu-folic acid 1 tab PO DAILY 06/29/23 01/31/24 01/22/24 08:00 [ Complete] omeprazole 20 mg capsule,delayed 20 mg PO DAILY #30 caps 11/18/23 01/31/24 01/22/24 12:00 release acetone (urine) test (Ketone Urine #50 ea 12/12/23 01/31/24 Unknown Test strips) blood sugar diagnostic (EcomsualTouch #150 ea 12/12/23 01/31/24 Unknown Verio test strips) blood-glucose meter (EcomsualTouch #1 ea 12/12/23 01/31/24 Unknown Verio Reflect Meter) lancets 33 gauge (OneTouch Delica #150 ea 12/12/23 01/31/24 Unknown Plus Lancet) ferrous sulfate 134 mg (27 mg 134 mg PO DAILY 01/22/24 01/31/24 01/21/24 07:00 iron) tablet amoxicillin 500 mg tablet 500 mg PO Q8H #21 tabs 01/24/24 01/31/24 Unknown Active Medications Generic Name Dose Route Start Last Admin Trade Name Deshawnq PRN Reason Stop Dose Admin Butorphanol Tartrate 1 mg 02/01/24 10:16 02/01/24 13:08 Butorphanol Tartrate 1 Mg/Ml Vial IM 03/02/24 10:15 1 mg Q2H PRN Administration Pain Fentanyl/Bupivacaine/Sodium Chlor 100 ml 02/01/24 14:54 02/01/24 15:21 Fentanyl 2 Mcg/Ml Bupivacaine 0.125%-Nss 100ml Bag EPI 02/02/24 14:53 100 ml PRN PRN Administration Pain R/T Labor Protocol Oxytocin 30 units in 500 mls @ 13 mls/hr 02/01/24 08:39 02/01/24 12:30 Pitocin 30 Units/Nss IV 02/03/24 08:38 0.78 units/hr .Q24H PRN 13 mls/hr Labor Induction/Augmentation Titration Protocol 0.78 UNITS/HR Lactated Ringer's 1,000 mls @ 125 mls/hr 02/01/24 08:34 02/01/24 09:27 Lr IV 02/03/24 08:33 125 mls/hr .Q8H PRN Administration L&D Protocol Protocol Past Medical History Medical History Asthma Chlamydia History of chicken pox Hypotension systolic runs in the 90s Nausea and vomiting after administration of anesthetic agent History of cold urticaria Exercise / Class Metabolic Activity II 4-5 Yardwork/Stairs/Walk up hill Past Family History Family History Grandfather (Maternal) Family history of diabetes mellitus Other No family history of adverse response to anesthesia No pertinent family history Denies family history of Ovarian cancer Prostate cancer Myocardial infarction Breast cancer Colorectal cancer Uterine cancer Past Surgical History Surgical History S/P wisdom tooth extraction Past Anesthesia History No Hx of Anesthesia Complications and No Family Hx of Anesthesia Complications History of PONV No Hx of PONV and No Hx of Motion Sickness Social History Smoking Status: Never smoker Do You Dip or Chew Tobacco: No Hx Alcohol Use: No Hx Substance Use: No substance use type: does not use Review of Systems denies fever/cough/ colds/ chest pain/ SOB/ ROBE denies ROBE Physical Exam Vital Signs Last Vital Signs Temp 36.7 C 02/01/24 14:03 Pulse 77 02/01/24 15:48 Resp 16 02/01/24 14:03 BP 104/67 02/01/24 15:34 Pulse Ox 99 02/01/24 15:48 ENMT Mouth: no TMJ abnormality and no dentition abnormality Thyromental Distance: > or= 3.5 Finger Breadths Mallampati Class: II Neck neck extension not limited Respiratory normal respiratory effort; no respiratory distress Auscultation: lungs clear to auscultation bilaterally Cardiovascular Rate/Rhythm: regular rate and regular rhythm Neurologic moves all extremities Psychiatric Orientation: alert and oriented x 3 Testing Laboratory Results 02/01/24 09:00 02/01/24 08:45 POC Glucose 113 H
[2024-02-01] MEDS: fentANYL 2 MCG/ML BUPIVacaine 0.125%-NSS 100ML BAG EPI PRN (15:21)
[2024-02-01] MEDS: LIDOCAINE 2%/EPINEPHRINE 1:200,000 20 ML PF EPI STA (15:26)
[2024-02-01] MEDS: fentaNYL citrate PF 100 MCG/2 ML VIAL EPI STA (15:26)
[2024-02-01] MEDS ORDERED: bisacodyL 10 MG SUPP PR PRN (17:58)
[2024-02-01] MEDS ORDERED: DIPHTHER/TETAN/PERTUS Vaccine (Tdap, Adol/Adult) 0.5mL IM ONE (17:58)
[2024-02-01] MEDS ORDERED: HYDROCORTISONE ACETATE 25 MG SUPP PR PRN (17:58)
[2024-02-01] MEDS ORDERED: oxyCODONE/ACETAMINOPHEN 5mg/325mg TAB PO PRN (17:58)
--- NOTE | 2024-02-01 18:01 | Anesthesia Procedure Note ---
Date of Service February 01, 2024 Anesthesia Post Epidural Note Vital Signs Vital Signs: Temp Pulse Resp BP Pulse Ox 36.7 C 86 16 103/65 97 02/01/24 14:03 02/01/24 17:56 02/01/24 14:03 02/01/24 17:56 02/01/24 17:55 Notes Mental Status: alert / awake / arousable and participated in evaluation Nausea / Vomiting: adequately controlled Pain: adequately controlled Airway Patency, RR, SpO2: stable & adequate BP & HR: stable & adequate Hydration State: stable & adequate Neuraxial Anesthesia: was administered and sensory block resolved Anesthetic Complications: no major complications apparent and Pt Satisfied with anesthetic care Epidural: Removed without complications and With tip intact
--- NOTE | 2024-02-01 18:21 | Delivery Summary ---
Vaginal Delivery Summary Date of Service February 01, 2024 Vaginal Delivery Summary and 1st Degree LAC (superficial perineal) Patient is a 28-year-old 4 para 3-0-0-3 female who presented at 39 weeks for elective induction of labor because of prior fourth degree laceration repair. Pitocin by induction protocol was begun and membranes were then ruptured when she was 4 cm dilated for clear fluid. She received effective epidural analgesia and progressed rapidly to full dilation. She pushed effectively over intact perineum for delivery of a viable male in the direct OP presentation. Once the was the head was delivered with no maternal effort and support of the perineum. The rest the was delivered again without maternal effort. He was placed on mother's abdomen for further attention and drying. He was vigorous crying and moving all 4 limbs. After 1 minute, the cord was clamped and cut. After cord blood was obtained, the placenta was expressed intact with a three-vessel cord. The superficial perineal laceration was repaired with 3-0 chromic in the usual fashion. QBL was 301 cc. Mother and were doing well after delivery. [facility] [place] Vaginal Delivery Charge Delivery Type Details: and 1st Degree LAC (superficial perineal)
[2024-02-01] MEDS: IBUPROFEN 600 MG TAB PO PRN (20:55)
[2024-02-01] MEDS: BENZOCAINE 20% SPRY 85 APPLN/85 GM CAN EXT PRN (20:56)
[2024-02-01] MEDS: DOCUSATE SODIUM 100 MG CAP PO SCH (20:56)
--- NOTE | 2024-02-02 06:21 | Obstetrical Progress Note ---
Date of Service <Eric Rucker MD - Last Filed: 02/02/24 08:39> February 02, 2024 Assessment & Plan <Eric Rucker MD - Last Filed: 02/02/24 08:39> (1) (normal spontaneous vaginal delivery): Plan 28 yo , status post on 02/01/24, w/ 1st degree laceration. - Pt doing well clinically. Feels well today. Eating well, voiding well, ambulating well. Pain well controlled with PRN pain meds. - Routine care -- OOB, ambulation, diet progression as tolerated Vital Signs reviewed and WNL. (Tmax at 36.7), w/ exception of low BP's (96/60) Hemoglobin Reviewed. 9.7 (01/31), 10.1 (today). WBC elevated at 11.6 (01/31), 16.8 (02/01) but patient w/out fevers, chills, or other concerns for systemic infection. Blood Type: AB-, GBS-, Rubella Immune. Patient will receive RhoGAM injection today. Encourage ambulation, monitor and control pain with Motrin PRN, resume regular diet, monitor lochia. Breast feeding encouraged. After discharge will have 6 week follow-up with Dr. Rutherford. Pt counselled on discharge instructions, in the event they are going home that day. <Sheri Thompson MD, FACOG - Last Filed: 02/02/24 11:32> (1) (normal spontaneous vaginal delivery): Subjective <Eric Rucker MD - Last Filed: 02/02/24 08:39> Ambulation: ambulating normally Voiding: no voiding problems Passing Gas:: Yes Diet Tolerance:: regular diet Lochia:: Moderate Feeding Type:: breast feeding Current Pain Level(1-10): 2 (in the perineal area) Constitutional: + fatigue; no fever, no chills or no body aches Eyes: no diplopia or no worsening vision Ear, Nose, Mouth, Throat: no nasal congestion, no nasal discharge or no sore throat Respiratory: no cough, no dyspnea or no wheezing Cardiovascular: no chest pain or no palpitations Gastrointestinal: + abdominal pain (slight cramping abdominal pain); no nausea, no vomiting, no constipation (BM this morning) or no diarrhea/loose stools Genitourinary (female): no dysuria, no urinary frequency or no urinary urgency Integumentary: + pruritus (at epidural insertion site); no rash Neurologic: no tingling, no numbness or no headache(s) Physical Exam <Eric Rucker MD - Last Filed: 02/02/24 08:39> Constitutional WD/WN, vitals as above Respiratory normal respiratory effort, lungs clear to auscultation Cardiovascular RRR, no murmur, no edema Gastrointestinal (Abdomen) Inspection/Auscultation: abdomen normal to inspection and normal bowel sounds Percussion/Palpation: + abdomen firm patient's uterine fundus just below umbilicus Skin no rashes, warm and dry Psychiatric A+Ox3, euthymic affect Results & Data <Eric Rucker MD - Last Filed: 02/02/24 08:39> Vital Signs (Past 12 Hours) Vital Signs Temp Pulse Pulse Resp BP BP Pulse Ox 02/02/24 03:20 36.4 C L 61 16 96/60 L 97 02/02/24 00:15 36.4 C L 82 16 93/60 L 96 02/01/24 20:50 36.5 C 85 16 103/63 98 02/01/24 20:23 36.7 C 18 02/01/24 20:23 90 100/62 02/01/24 20:11 87 125/107 H 02/01/24 19:56 82 102/68 02/01/24 19:45 18 02/01/24 19:41 82 103/56 L 02/01/24 19:26 76 98/59 L 02/01/24 19:17 104 H 93 02/01/24 19:15 16 02/01/24 19:15 92 H 96 02/01/24 19:11 80 107/51 L 02/01/24 19:10 91 H 96 02/01/24 19:05 78 96 02/01/24 19:01 75 107/53 L 02/01/24 19:00 73 97 02/01/24 18:55 76 97 02/01/24 18:50 71 97 02/01/24 18:45 82 98 02/01/24 18:41 55 L 95/52 L 02/01/24 18:40 67 99 02/01/24 18:35 73 96 02/01/24 18:30 95 02/01/24 18:30 76 02/01/24 18:30 78 94 02/01/24 18:27 71 130/63 02/01/24 18:25 80 96 O2 Del Method 02/02/24 03:20 Room Air 02/02/24 00:15 Room Air 02/01/24 20:50 Room Air 02/01/24 20:23 02/01/24 20:23 02/01/24 20:11 02/01/24 19:56 02/01/24 19:45 02/01/24 19:41 02/01/24 19:26 02/01/24 19:17 02/01/24 19:15 02/01/24 19:15 02/01/24 19:11 02/01/24 19:10 02/01/24 19:05 02/01/24 19:01 02/01/24 19:00 02/01/24 18:55 02/01/24 18:50 02/01/24 18:45 02/01/24 18:41 02/01/24 18:40 02/01/24 18:35 02/01/24 18:30 02/01/24 18:30 02/01/24 18:30 02/01/24 18:27 02/01/24 18:25 Supervising Physician <Sheri Thompson MD, FACOG - Last Filed: 02/02/24 11:32> Co-Signing Physician Notes Resident Physician Supervision Note: I interviewed and examined the patient. Discussed with Dr. Rucker and agree with findings and plan as documented in the note. Any exceptions or clarifications are listed here: [None] Documented By: Sheri Thompson MD, FACOG
[2024-02-02 06:33] LABS: Hematocrit (blood only) 30.8 % (37.0-47.0); Hemoglobin 10.1 g/dl (12.0-16.0); Mean Corpuscular Hemoglobin 29.9 pg (25.0-34.0); Mean Corpuscular Hgb Conc 32.8 g/dL (32.0-36.0); Mean Corpuscular Volume 91.1 fL (80.0-100.0); Mean Platelet Volume 11.7 fL (9.4-12.4); Platelet Count 245 K/uL (130-400); RDW Coefficient of Variation 14.4 % (11.5-14.5); RDW Standard Deviation 47.8 fL (36.4-46.3); Red Blood Count 3.38 M/uL (4.20-5.40); White Blood Count 16.78 K/ul (4.8-10.8)
[2024-02-02] MEDS: PRENATAL VITAMIN 1 TAB PO SCH (07:44)
[2024-02-02] MEDS: ACETAMINOPHEN 325 MG TAB PO PRN (07:44)
[2024-02-02] MEDS ORDERED: bisacodyL 5 MG TABEC PO SCH (20:00)
== END 2024-02-02 18:49 | disposition home or self-care (01) | DRG 807 ==
LOC: 4S1 07:41 → 4E2 20:55